=== PATIENT | female | born 1980 | race Caucasian/White ===

== ENCOUNTER → 2016-11-19 | Outpatient (CLI) | payer OTHER | END | disposition home or self-care (01) | LOC: CFH 12:59 | PROVIDERS: ATTEND Nurse Practitioner Family | DX: N92.6 Irregular menstruation, unspecified (principal); N83.292 Other ovarian cyst, left side; R92.2 Inconclusive mammogram; Z80.3 Family history of malignant neoplasm of breast | CPT/HCPCS: 76641; 76830; G0204 ==

== ENCOUNTER 2017-12-12 22:59 | Emergency (ER) | payer OTHER ==
[~2017-12-12] VITALS: Ht 160 cm; Wt 89.9 kg
[2017-12-12] MEDS ORDERED: DIPH,PERTUSS(ACELL),TET VAC/PF 0.5 ML IM-VACC ONE ×2 (23:30→23:47)
[2017-12-12] MEDS ORDERED: LIDOCAINE 1%-EPI 1:100K, 30ML SQ ONE (23:30)
[2017-12-13] MEDS ORDERED: LIDOCAINE 1%-EPI 1:100K, 30ML ONE (01:01)
[2017-12-13 01:51] VITALS: BP 100/48
== END 2017-12-13 01:53 | disposition home or self-care (01) ==
LOC: ED 12-13 00:28
DX: S01.81XA Laceration without foreign body of other part of head, initial encounter (principal); V87.8XXA Person injured in other specified noncollision transport accidents involving motor vehicle (traffic), initial encounter; Y93.89 Activity, other specified; Y92.410 Unspecified street and highway as the place of occurrence of the external cause; Y99.8 Other external cause status
CPT/HCPCS: 12013; 70450; 72125; 90471; 90715

== ENCOUNTER → 2018-04-23 | Outpatient (CLI) | payer OTHER ==
[~2018-04-23] MED LIST: EFFEXOR PO; MULT-516 PO
== END | disposition home or self-care (01) ==
LOC: STAR 14:25
PROVIDERS: ATTEND Student in an Organized Health Care Education/Training Program
DX: Z01.818 Encounter for other preprocedural examination (principal); N93.9 Abnormal uterine and vaginal bleeding, unspecified
CPT/HCPCS: 36415; 84703

== ENCOUNTER 2018-05-06 10:11 | Day surgery (SDC) | payer OTHER ==
[2018-04-23 15:06] VITALS: BP 113/79
[~2018-05-06] VITALS: Ht 160 cm; Wt 84.6 kg
[2018-05-06] MEDS ORDERED: ACETAMINOPHEN 500 MG TABLET PO ONE (10:30)
[2018-05-06] MEDS ORDERED: SCOPOLAMINE PATCH, 1.5MG PATCH.TD72 TD ONE (10:30)
[2018-05-06] MEDS ORDERED: DIAZEPAM 5 MG TABLET PO ONE (10:30)
[2018-05-06] MEDS ORDERED: FAMOTIDINE 20 MG TABLET PO ONE (10:30)
[2018-05-06] MEDS ORDERED: GABAPENTIN 300 MG CAPSULE PO ONE (10:30)
[2018-05-06] MEDS ORDERED: LACTATED RINGERS 1,000 ML IV SCH (10:35)
[2018-05-06] MEDS ORDERED: EPINEPHRINE 1 MG/ML, 1ML ONE (10:37)
[2018-05-06] MEDS ORDERED: BUPIVACAINE/PF 0.25% ONE (10:37)
[2018-05-06] MEDS ORDERED: SILVER NITRATE STICK TP ONE (10:37)
[2018-05-06 10:40] VITALS: BP 113/79
[2018-05-06 11:23] LABS: HCG UR SG 1.023 (1.003-1.030)
[2018-05-06] MEDS ORDERED: FENTANYL PF 250 MCG/5ML ONE (11:39)
[2018-05-06] MEDS ORDERED: MIDAZOLAM 1 MG/ML, 2ML ONE (11:39)
[2018-05-06] MEDS ORDERED: MEPERIDINE/PF 25MG/0.5ML IVPush PRN (12:30)
[2018-05-06] MEDS ORDERED: ONDANSETRON 2MG/ML, 2ML IV PRN (12:30)
[2018-05-06] MEDS ORDERED: PROMETHAZINE 25 MG/ML, 1ML IV PRN (12:30)
[2018-05-06] MEDS ORDERED: DIAZEPAM 5 MG/ML, 2ML IVPush PRN (12:30)
[2018-05-06] MEDS ORDERED: OXYcodone 5 MG/5 ML ORAL.SOL UDC PO PRN (12:30)
[2018-05-06] MEDS ORDERED: ONDANSETRON ODT 8 MG PO PRN (12:30)
[2018-05-06] MEDS ORDERED: INDIGO CARMINE 0.8%, 5ML ONE (12:41)
[2018-05-06] MEDS ORDERED: ONDANSETRON 2MG/ML, 2ML ONE (13:16)
[2018-05-06] MEDS ORDERED: DEXAMETHASONE 4 MG/ML, 1ML ONE (13:16)
[2018-05-06] MEDS ORDERED: GLYCOPYRROLATE 0.2MG/1ML, 5ML ONE (13:16)
[2018-05-06] MEDS ORDERED: SUCCINYLCHOLINE 20 MG/ML, 10ML ONE (13:16)
[2018-05-06] MEDS ORDERED: CEFAZOLIN 1,000 MG ONE (13:16)
[2018-05-06] MEDS ORDERED: PROPOFOL 10 MG/ML, 20ML ONE (13:16)
[2018-05-06] MEDS ORDERED: NEOSTIGMINE 1 MG/ML, 10ML ONE (13:16)
[2018-05-06] MEDS ORDERED: PROPOFOL 100 ML ONE (13:16)
[2018-05-06] MEDS ORDERED: ROCURONIUM 10MG/ML,5ML ONE (13:16)
[2018-05-06] MEDS ORDERED: OXYcodone 5 MG/5 ML ORAL.SOL UDC ONE ×2 (14:01→14:21)
[2018-05-06] MEDS ORDERED: FENTANYL PF 100 MCG/2ML ONE (14:01)
[2018-05-06] MEDS: FENTANYL PF 100 MCG/2ML IV PRN ×2 (14:03→14:17)
[2018-05-06] MEDS ORDERED: HYDROmorphone 2 MG/ML, 1ML ONE (14:25)
[2018-05-06] MEDS: HYDROmorphone 2 MG/ML, 1ML IVPush PRN ×3 (14:28→14:57)
[2018-05-06] MEDS ORDERED: KETOROLAC 30 MG/1 ML ONE (14:40)
[2018-05-06] MEDS ORDERED: MEPERIDINE/PF 50 MG/ML ONE (14:47)
[2018-05-06] MEDS ORDERED: KETOROLAC 30 MG/1 ML IVPush PRN (15:00)
== END 2018-05-06 17:10 | disposition home or self-care (01) ==
LOC: OUT 10:11
PROVIDERS: ATTEND Student in an Organized Health Care Education/Training Program
DX: N92.4 Excessive bleeding in the premenopausal period (principal)
CPT/HCPCS: 36415; 58260; 81025; 86850; 86900; 88307; J0171; J0330; J0690; J1100; J1170; J1885; J2250; J2405; J2704; J2710; J3010; J3490; J7120